=== PATIENT | male | born 1990 | race African-American/Black ===

== ENCOUNTER 2019-10-10 17:44 | Inpatient (IN) | payer BC ==
[2019-10-10] MEDS ORDERED: SODIUM CHLORIDE 0.9% 1,000 ML IV STA ×2 (18:40→20:08)
[2019-10-10 18:54] LABS: Basophils % (A) 0 %; Eosinophils # (A) 0.1 k/uL (0-0.7); Eosinophils % (A) 2 %; HCT 45.1 % (39.0-53.0); HGB 14.7 gm/dL (13.0-17.5); Lymphocytes # (A) 3.9 k/uL (1.0-4.8); Lymphocytes % (A) 52 %; MCH 28.5 pg (25.0-35.0); MCHC 32.5 g/dL (31.0-37.0); MCV 87.7 fL (80.0-100.0); Mean Platelet Volume 6.4; Monocytes # (A) 0.3 k/uL (0-1.0); Monocytes % (A) 4 %; Neutrophils % (A) 40 %; Platelet Count 290 k/uL (150-450); RBC 5.15 m/uL (4.30-5.90); RDW 14.2 % (11.5-15.5); WBC 7.5 k/uL (3.8-10.6)
[2019-10-10 19:03] LABS: ALT 387 U/L (4-49); African American GFR (CKD) >90 (>60 ml/min/1.73 sqM); Albumin 4.3 g/dL (3.5-5.0); Alkaline Phosphatase 51 U/L (38-126); Anion Gap 5 mmol/L; Blood Urea Nitrogen 22 mg/dL (9-20); Calcium 9.2 mg/dL (8.4-10.2); Carbon Dioxide 26 mmol/L (22-30); Chloride 104 mmol/L (98-107); Glucose 84 mg/dL (74-99); Non-African American GFR(CKD) >90 (>60 ml/min/1.73 sqM); Potassium 4.6 mmol/L (3.5-5.1); Sodium 135 mmol/L (137-145); Total Bilirubin 0.3 mg/dL (0.2-1.3); Total Protein 7.2 g/dL (6.3-8.2)
[2019-10-10 19:23] LABS: AST 1702 U/L (17-59)
[2019-10-10 20:01] LABS: Amylase 58 U/L (30-110)
[2019-10-10 20:13] LABS: Appearance,Urine Clear (Clear); Bacteria,Urine Rare /hpf; Bilirubin,Urine Negative (Negative); Blood,Urine Large (Negative); Color,Urine Yellow; Glucose,Urine (UA) Negative (Negative); Ketones,Urine Negative (Negative); Leukocyte Esterase,Urine Negative (Negative); Mucus,Urine Rare /hpf; Nitrite,Urine Negative (Negative); PH, Urine 5.5 (5.0-8.0); Protein,Urine 1+ (Negative); RBC,Urine 1 /hpf (0-5); Specific Gravity,Urine 1.019 (1.001-1.035); Squamous Epithelial Cell,Urine <1 /hpf (0-4); Urobilinogen,Urine <2.0 mg/dL (<2.0); WBC,Urine 1 /hpf (0-5)
[2019-10-10 20:16] LABS: Creatine Kinase 117740 U/L (55-170)
--- NOTE | 2019-10-10 20:35 | ED ---
General Adult HPI - General Chief complaint: Back Pain/Injury Stated complaint: Back Pain Source: patient, RN notes reviewed Mode of arrival: ambulatory Limitations: no limitations - History of Present Illness Initial comments: 29-year-old male without any significant past medical history presents to the emergency department for a chief complaint of back pain. Patient states 4 days ago he started doing cross that again. Patient states his upper back feels very swollen and painful. Patient states his urine is dark as well. Patient talked to a physician who works out at the [employer] and they were concerned he may have rhabdomyolysis so recommended he present to the emergency room. Patient is otherwise feeling well. Patient states he has been a significant amount of amount of sit ups and pushups.Patient has no other complaints at this time including shortness of breath, chest pain, abdominal pain, nausea or vomiting, headache, or visual changes. - Related Data Allergies Allergy/AdvReac Type Severity Reaction Status Date / Time amoxicillin Allergy Rash/Hives Verified 10/10/19 17:51 Review of Systems ROS Statement: Those systems with pertinent positive or pertinent negative responses have been documented in the HPI. ROS Other: All systems not noted in ROS Statement are negative. Past Medical History Past Medical History: No Reported History History of Any Multi-Drug Resistant Organisms: None Reported Additional Past Surgical History / Comment(s): Right arm surgery. Past Psychological History: No Psychological Hx Reported Smoking Status: Never smoker Past Alcohol Use History: Occasional Past Drug Use History: None Reported General Exam Limitations: no limitations General appearance: alert, in no apparent distress Head exam: Present: atraumatic, normocephalic, normal inspection Eye exam: Present: normal appearance, PERRL, EOMI. Absent: scleral icterus, conjunctival injection, periorbital swelling ENT exam: Present: normal exam, mucous membranes moist Neck exam: Present: normal inspection, full ROM. Absent: tenderness, meningismus, lymphadenopathy Respiratory exam: Present: normal lung sounds bilaterally. Absent: respiratory distress, wheezes, rales, rhonchi, stridor Cardiovascular Exam: Present: regular rate, normal rhythm, normal heart sounds. Absent: systolic murmur, diastolic murmur, rubs, gallop, clicks GI/Abdominal exam: Present: soft, normal bowel sounds. Absent: distended, te nderness, guarding, rebound, rigid Back exam: Present: paraspinal tenderness (Patient has bilateral trapezius tenderness). Absent: full ROM (And is able to fully extend but has diminished flexion of the lumbar spine) Neurological exam: Present: alert Psychiatric exam: Present: normal affect, normal mood Course Vital Signs 10/10/19 10/10/19 17:46 19:50 Temperature 98 F Pulse Rate 75 77 Respiratory 18 18 Rate Blood Pressure 137/95 132/90 O2 Sat by Pulse 98 99 Oximetry Medical Decision Making - Medical Decision Making Vitals are stable. CBC is unremarkable. CMP however does show significant transaminitis with an AST is 1700, ALT 387 most likely related to transaminitis. Creatine kinase 117,740. Patient was given 2 L of fluids and started on maintenance fluids. Admitted to [facility] call. Nephrology consulted. - Lab Data Result diagrams: 10/10/19 18:36 10/10/19 18:36 Lab Results 10/10/19 10/10/19 10/10/19 Range/Units 18:36 18:36 18:36 WBC 7.5 (3.8-10.6) k/uL RBC 5.15 (4.30-5.90) m/uL Hgb 14.7 (13.0-17.5) gm/dL Hct 45.1 (39.0-53.0) % MCV 87.7 (80.0-100.0) fL MCH 28.5 (25.0-35.0) pg MCHC 32.5 (31.0-37.0) g/dL RDW 14.2 (11.5-15.5) % Plt Count 290 (150-450) k/uL Neutrophils % 40 % Lymphocytes % 52 % Monocytes % 4 % Eosinophils % 2 % Basophils % 0 % Neutrophils # 3.0 (1.3-7.7) k/uL Lymphocytes # 3.9 (1.0-4.8) k/uL Monocytes # 0.3 (0-1.0) k/uL Eosinophils # 0.1 (0-0.7) k/uL Basophils # 0.0 (0-0.2) k/uL Sodium 135 L (137-145) mmol/L Potassium 4.6 (3.5-5.1) mmol/L Chloride 104 (98-107) mmol/L Carbon Dioxide 26 (22-30) mmol/L Anion Gap 5 mmol/L BUN 22 H (9-20) mg/dL Creatinine 1.10 (0.66-1.25) mg/dL Est GFR (CKD-EPI)AfAm >90 (>60 ml/min/1.73 sqM) Est GFR (CKD-EPI)NonAf >90 (>60 ml/min/1.73 sqM) Glucose 84 (74-99) mg/dL Calcium 9.2 (8.4-10.2) mg/dL Total Bilirubin 0.3 (0.2-1.3) mg/dL AST 1702 H (17-59) U/L ALT 387 H (4-49) U/L Alkaline Phosphatase 51 (38-126) U/L Creatine Kinase [id number] H* (55-170) U/L Total Protein 7.2 (6.3-8.2) g/dL Albumin 4.3 (3.5-5.0) g/dL Amylase 58 (30-110) U/L Lipase 102 (23-300) U/L Urine Color Urine Appearance (Clear) Urine pH (5.0-8.0) Ur Specific [place] (1.001-1.035) Urine Protein (Negative) Urine Glucose (UA) (Negative) Urine Ketones (Negative) Urine Blood (Negative) Urine Nitrite (Negative) Urine Bilirubin (Negative) Urine Urobilinogen (<2.0) mg/dL Ur Leukocyte Esterase (Negative) Urine RBC (0-5) /hpf Urine WBC (0-5) /hpf Ur Squamous Epith Cells (0-4) /hpf Urine Bacteria (None) /hpf Urine Mucus (None) /hpf 10/10/19 Range/Units 19:50 WBC (3.8-10.6) k/uL RBC (4.30-5.90) m/uL Hgb (13.0-17.5) gm/dL Hct (39.0-53.0) % MCV (80.0-100.0) fL MCH (25.0-35.0) pg MCHC (31.0-37.0) g/dL RDW (11.5-15.5) % Plt Count (150-450) k/uL Neutrophils % % Lymphocytes % % Monocytes % % Eosinophils % % Basophils % % Neutrophils # (1.3-7.7) k/uL Lymphocytes # (1.0-4.8) k/uL Monocytes # (0-1.0) k/uL Eosinophils # (0-0.7) k/uL Basophils # (0-0.2) k/uL Sodium (137-145) mmol/L Potassium (3.5-5.1) mmol/L Chloride (98-107) mmol/L Carbon Dioxide (22-30) mmol/L Anion Gap mmol/L BUN (9-20) mg/dL Creatinine (0.66-1.25) mg/dL Est GFR (CKD-EPI)AfAm (>60 ml/min/1.73 sqM) Est GFR (CKD-EPI)NonAf (>60 ml/min/1.73 sqM) Glucose (74-99) mg/dL Calcium (8.4-10.2) mg/dL Total Bilirubin (0.2-1.3) mg/dL AST (17-59) U/L ALT (4-49) U/L Alkaline Phosphatase (38-126) U/L Creatine Kinase (55-170) U/L Total Protein (6.3-8.2) g/dL Albumin (3.5-5.0) g/dL Amylase (30-110) U/L Lipase (23-300) U/L Urine Color Yellow Urine Appearance Clear (Clear) Urine pH 5.5 (5.0-8.0) Ur Specific [place] 1.019 (1.001-1.035) Urine Protein 1+ H (Negative) Urine Glucose (UA) Negative (Negative) Urine Ketones Negative (Negative) Urine Blood Large H (Negative) Urine Nitrite Negative (Negative) Urine Bilirubin Negative (Negative) Urine Urobilinogen <2.0 (<2.0) mg/dL Ur Leukocyte Esterase Negative (Negative) Urine RBC 1 (0-5) /hpf Urine WBC 1 (0-5) /hpf Ur Squamous Epith Cells <1 (0-4) /hpf Urine Bacteria Rare H (None) /hpf Urine Mucus Rare H (None) /hpf Disposition Clinical Impression: Rhabdomyolysis, Transaminitis Disposition: ADMITTED IP TO THIS HOSP Is patient prescribed a controlled substance at d/c from ED?: No Referrals: None,Stated [Primary Care Provider] - 1-2 days Time of Disposition: 20:35
[2019-10-10] MEDS ORDERED: NALOXONE 0.4 MG/ML 1 ML VIAL IV PRN (20:57)
[2019-10-10] MEDS: SODIUM CHLORIDE 0.9% 1,000 ML IV SCH (21:05)
[2019-10-11] MEDS: SODIUM CHLORIDE 0.9% 1,000 ML IV SCH ×6 (02:07→21:23)
--- NOTE | 2019-10-11 03:05 | P.HPIM ---
History of Present Illness H&P Date: 10/10/19 Chief Complaint: body aches , dark urine 29 year old male with no significant past medical history comes in due to couple day history of dark urine and diffuse body aches, all started after he finally was able to go back to the gym and workout really hard that day. next morning he noticed diffuse swelling in his muscles and soreness. otherwise, denies any sick contact, denies GI symptoms, URI symptoms, loss of smell or taste sensation. denies abd pain nausea or vomiting. in the ED he was found to be in acute rhabdomyolysis and admitted for further care. Review of Systems Pertinent positives as noted in HPI. All other systems were reviewed and are negative Past Medical History Past Medical History: No Reported History History of Any Multi-Drug Resistant Organisms: None Reported Additional Past Surgical History / Comment(s): Right arm surgery. Past Anesthesia/Blood Transfusion Reactions: No Reported Reaction Past Psychological History: No Psychological Hx Reported Smoking Status: Never smoker Past Alcohol Use History: Occasional Past Drug Use History: None Reported - Past Family History family Family Medical History: No Reported History Medications and Allergies Home Medications Medication Instructions Recorded Confirmed Type Cholecalciferol [Vitamin D3 (25 1,000 unit PO DAILY 10/10/19 10/10/19 History Mcg = 1000 Iu)] Hydrocodone (Unknown Strength) 1 tab PO ONCE 10/10/19 10/10/19 History Ibuprofen 800 mg PO Q8H PRN 10/10/19 10/10/19 History Multivitamins, Thera [Multivitamin 1 tab PO DAILY 10/10/19 10/10/19 History (formulary)] [place]-3 Fatty Acids/Fish Oil [Fish 1 cap PO DAILY 10/10/19 10/10/19 History Oil 1,000 mg Softgel] Allergies Allergy/AdvReac Type Severity Reaction Status Date / Time amoxicillin Allergy Rash/Hives Verified 10/10/19 23:26 Physical Exam Vitals: Vital Signs Temp Pulse Resp BP Pulse Ox 10/10/19 21:39 98.8 F 72 18 134/91 98 10/10/19 19:50 77 18 132/90 99 10/10/19 17:46 98 F 75 18 137/95 98 Intake and Output 10/10/19 10/10/19 10/10/19 06:59 14:59 22:59 Intake Total 240 Balance 240 Intake: Oral 240 Other: Weight 107.501 kg Constitutional: No acute distress, conversant, pleasant Eyes: Anicteric sclerae, moist conjunctiva, no lid-lag Pupils equal round reactive to light ENMT: NC/AT Oropharynx clear, no erythema, exudates Neck: Supple, FROM, no masses, or JVD No carotid bruits No thyromegaly Lungs: Clear to auscultation Clear to percussion Normal respiratory effort, no accessory muscle use Cardiovascular: Heart regular in rate and rhythm, No murmurs, gallops, or rubs No peripheral edema Abdominal: Soft Nontender, no guarding, rebound or rigidity Abdomen moving with respiration Normoactive bowel sounds No hepatomegaly, No splenomegaly No palpable mass No abdominal wall hernia noted Skin: Normal temperature, tone, texture, turgor No induration No subcutaneous nodules No rash, lesions No ulcers Extremities: limited range of motion over bilateral elbows due to pain and swelling of his arm muscles No digital cyanosis No clubbing Pedal pulses intact and symmetrical Radial pulses intact and symmetrical No calf tenderness Psychiatric: Alert and oriented to person, place and time Appropriate affect fair judgement Neuro Muscles Strength 4/5 in all 4 extremities Sensation to light touch grossly present throughout Cranial nerves II-XII grossly intact No focal sensory deficits Lymphatics: no palpable cervical or supraclavicular , or inguinal lymph nodes Results CBC & Chem 7: 10/10/19 18:36 10/10/19 18:36 Labs: Abnormal Lab Results - Last 24 Hours (Table) 10/10/19 10/10/19 Range/Units 18:36 19:50 Sodium 135 L (137-145) mmol/L BUN 22 H (9-20) mg/dL AST 1702 H (17-59) U/L ALT 387 H (4-49) U/L Creatine Kinase [id number] H* (55-170) U/L Urine Protein 1+ H (Negative) Urine Blood Large H (Negative) Urine Bacteria Rare H (None) /hpf Urine Mucus Rare H (None) /hpf Thrombosis Risk Factor Assmnt - Choose All That Apply Any of the Below Risk Factors Present?: Yes Each Factor Represents 1 point: Obesity (BMI >25) Other Risk Factors: No Other congenital or acquired thrombophilia - If yes, enter type in comment: No Thrombosis Risk Factor Assessment Total Risk Factor Score: 1 Thrombosis Risk Factor Assessment Level: Low Risk Assessment and Plan Assessment: 29 year old male with no significant past medical history comes in after restarting his workout regimen and noticed dark urine with diffuse muscle aches next day. this has been getting worse without much improvement , was found to be in acute rhabdomyolysis admitted for further treatment with anticipated length of stay > 2 midngihts acute rhabdomyolysis due to strenous exercising aggressive IVF hydration renal function monitoring , currently intact monitor urine output pain control monitor CK follow up COVID 19 testing DVT PPX heparin sc tid bed rest full code Discussed with: Patient, ER,rn Anticipated length of stay > than [address]: home A total of 75 minutes was spent on the care of this complex patient more than 50% of the time was spent in counseling and care coordination.
[2019-10-11] MEDS ORDERED: MORPHINE SULFATE 2 MG/ML SYRINGE IVP PRN (03:06)
[2019-10-11 07:41] LABS: African American GFR (CKD) >90 (>60 ml/min/1.73 sqM); Anion Gap 2 mmol/L; Blood Urea Nitrogen 16 mg/dL (9-20); Calcium 8.6 mg/dL (8.4-10.2); Carbon Dioxide 28 mmol/L (22-30); Chloride 106 mmol/L (98-107); Glucose 91 mg/dL (74-99); Non-African American GFR(CKD) >90 (>60 ml/min/1.73 sqM); Sodium 136 mmol/L (137-145)
[2019-10-11 07:52] LABS: Potassium 4.7 mmol/L (3.5-5.1)
[2019-10-11 09:18] LABS: Creatine Kinase 90535 U/L (55-170)
[2019-10-11] MEDS: HEPARIN SODIUM,PORCINE 5,000 UNIT/ML 1 ML VIAL SQ SCH ×3 (10:25→23:51)
--- NOTE | 2019-10-11 14:04 | CONS ---
CONSULTATION REASON FOR CONSULT: Rhabdomyolysis. HISTORY OF PRESENT ILLNESS: The patient is a 29-year-old male with no significant past medical history. He stated that he recently started working out again after being in lock-down and not having worked out for almost 2 months. The patient stated that he felt extreme back pain and muscle weakness and generalized soreness 2 days after his workout. He also noticed swelling of his limbs. He noticed dark urine as well. He is not maintained on any statins prior to admission. Serum creatine kinase [place] 266201[place] [address]. The patient has been maintained on IV fluids. Serum creatinine was 1.1, now it is at 1.0. Patient has had good urine output. He states his urine has become much certified shorthand reporter now. PAST MEDICAL HISTORY: None. SOCIAL HISTORY: Negative for smoking, drug abuse or alcohol abuse. PAST SURGICAL HISTORY: Right arm surgery, nonspecific. MEDICATIONS: Medications at home prior to admission include vitamin D, multivitamins, occasional ibuprofen, fish oil, Vicodin. ALLERGIES: Include AMOXICILLIN which causes rash and hives. REVIEW OF SYSTEMS: As per HPI. Other systems negative. PHYSICAL EXAMINATION: Patient is comfortable, awake, alert, oriented x3, not in any acute distress. Blood pressure is 130/73, heart rate 53 per minute, he is afebrile. Examination of the heart S1, S2. Examination of the lungs, bilateral breath sounds are heard. Abdomen is soft, nontender. Examination of lower extremities shows no evidence of edema. 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 LABS: Show sodium of 136, potassium 4.7, chloride 106, CO2 is 28, BUN 16, [place] 1[place] [address]. UA shows large blood, protein 1+. ASSESSMENT: 1. Rhabdomyolysis, currently improving, associated with intensive workup and probably exacerbated by the warm temperatures as well. 2. Acute kidney injury associated with volume depletion as well as rhabdomyolysis. Serum creatinine 1.0 from 1.1, currently nonoliguric with good urine output. Repeat labs in a.m. 3. History of vitamin D deficiency. PLAN: Continue IV fluids, repeat labs in a.m. At this time since the CK level is improving the serum bicarb was 28, we can continue with normal saline instead of IV bicarb. MMODL / IJN: [id number] /
--- NOTE | 2019-10-11 15:14 | P.PN ---
Subjective Progress Note Date: 10/11/19 29 yo male admitted yesterday with exercise induced rhabdomyolysis. Muscle pain has improved today, CPK has slightly decreased but is still > 90,000, Cr has been stable UOP has been adequate, remains on NS @ 250cc/hr. He denies any fevers or chills, no headaches, no chest pain, no tremors or weakness. Objective - Vital Signs Vital signs: Vital Signs Temp 97.6 F 10/11/19 11:40 Pulse 64 10/11/19 11:40 Resp 16 10/11/19 11:40 BP 134/59 10/11/19 11:40 Pulse Ox 98 10/11/19 11:40 Intake & Output 10/10/19 10/11/19 10/11/19 18:59 06:59 18:59 Intake Total 240 Balance 240 Weight 107.501 kg 107.501 kg Intake: Oral 240 Other: Voiding Method Toilet Toilet # Voids 1 3 - Constitutional General appearance: Present: average body habitus, cooperative, no acute distress. Absent: mild distress - EENT Eyes: Present: EOMI, PERRLA. Absent: abnormal pupil - Neck Neck: Present: normal ROM. Absent: rigidity - Respiratory Respiratory: bilateral: CTA - Cardiovascular Rhythm: regular Abnormal Heart Sounds: Absent: systolic murmur, diastolic murmur - Gastrointestinal General gastrointestinal: Present: normal bowel sounds. Absent: distended, tenderness - Integumentary Integumentary: Absent: calor, cellulitis, jaundiced - Neurologic Neurologic: Present: CNII-XII intact, focal deficits - Musculoskeletal Musculoskeletal: Present: gait normal, strength equal bilaterally. Absent: generalized weakness - Psychiatric Psychiatric: Present: A&O x's 3, appropriate affect - Labs CBC & Chem 7: 10/10/19 18:36 10/11/19 06:36 Labs: Abnormal Lab Results - Last 24 Hours (Table) 10/10/19 10/10/19 10/11/19 Range/Units 18:36 19:50 06:36 Sodium 135 L 136 L (137-145) mmol/L BUN 22 H (9-20) mg/dL AST 1702 H (17-59) U/L ALT 387 H (4-49) U/L Creatine Kinase 484189 H* 28369 H* (55-170) U/L Urine Protein 1+ H (Negative) Urine Blood Large H (Negative) Urine Bacteria Rare H (None) /hpf Urine Mucus Rare H (None) /hpf Assessment and Plan Assessment: # Acute rhabdomyolysis due to strenous exercising -CPK 90,500 today down from 117,000 yesterday -muscle tenderness improving, no weakness -continue IVF, repeat CPK in am -monitor renal function which has been normal so far -continue NS @250cc/hr # DVT PPX # Reg Diet # Disposition -patient may be discharged home tomorrow if renal function is normal and is clinically stable, as long as CPK level is trending down
[2019-10-12] MEDS: HEPARIN SODIUM,PORCINE 5,000 UNIT/ML 1 ML VIAL SQ SCH ×2 (00:36→08:29)
[2019-10-12] MEDS: SODIUM CHLORIDE 0.9% 1,000 ML IV SCH ×3 (02:11→08:31)
[2019-10-12 04:17] VITALS: BP 135/66; PULSE 55; RESP 16; TEMP 96.9
[2019-10-12 08:39] LABS: Basophils % (A) 0 %; Eosinophils # (A) 0.1 k/uL (0-0.7); Eosinophils % (A) 1 %; HCT 43.9 % (39.0-53.0); HGB 13.9 gm/dL (13.0-17.5); Lymphocytes # (A) 2.5 k/uL (1.0-4.8); Lymphocytes % (A) 47 %; MCH 28.3 pg (25.0-35.0); MCHC 31.7 g/dL (31.0-37.0); MCV 89.3 fL (80.0-100.0); Mean Platelet Volume 6.4; Monocytes # (A) 0.3 k/uL (0-1.0); Monocytes % (A) 5 %; Neutrophils # (A) 2.4 k/uL (1.3-7.7); Neutrophils % (A) 45 %; Platelet Count 249 k/uL (150-450); RBC 4.91 m/uL (4.30-5.90); RDW 14.2 % (11.5-15.5); WBC 5.3 k/uL (3.8-10.6)
[2019-10-12 08:45] LABS: ALT 317 U/L (4-49); African American GFR (CKD) >90 (>60 ml/min/1.73 sqM); Albumin 3.5 g/dL (3.5-5.0); Alkaline Phosphatase 49 U/L (38-126); Anion Gap 5 mmol/L; Blood Urea Nitrogen 11 mg/dL (9-20); Calcium 8.5 mg/dL (8.4-10.2); Carbon Dioxide 26 mmol/L (22-30); Chloride 107 mmol/L (98-107); Glucose 128 mg/dL (74-99); Non-African American GFR(CKD) >90 (>60 ml/min/1.73 sqM); Potassium 4.5 mmol/L (3.5-5.1); Sodium 138 mmol/L (137-145); Total Bilirubin 0.3 mg/dL (0.2-1.3); Total Protein 6.5 g/dL (6.3-8.2)
[2019-10-12 09:08] LABS: AST 938 U/L (17-59)
[2019-10-12 09:17] LABS: Creatine Kinase 56713 U/L (55-170)
--- NOTE | 2019-10-12 10:23 | P.DS ---
Providers Date of admission: 10/10/19 21:04 Attending physician: Radha Larose DO Consults: 10/10/19 20:58 Consult Physician Routine Consulting Provider: Mica Duffy Consult Reason/Comments: jeffrey Do you want consulting provider notified?: Yes Primary care physician: Stated None - Discharge Diagnosis(es) (1) Rhabdomyolysis Current Visit: Yes Status: Acute Priority: High Hospital Course: 29 yo male admitted with exercise induced rhabdomyolysis with CPK 117,000, Cr 1.1 on admission. Started on Bicarb drip and NS @ 250cc/hr. Cr improved to 0.94, no evidence of acidosis or electrolyte abnormality. Bicarb drip discontinued the following day and maintained on NS. patient had good urine output with stable kidney function, muscle pain had significantly improved, he has not required any any analgesia, CPK dropped to 50,000, AST/ALT were elevated as a function of muscle damage and not necessarily liver failure, but these were improving as well. Patient was insisting on going home, given the fact that he maintained excellent renal function with good urine output and the lack of co morbidities, decision was made to discharge patient home. He was counseled extensively on the care plan over the next few days. He is to avoid all strenuous activities over the next week, avoid NSAIDs, may use Tylenol for pain, and drink at least 2+ liters of fluids daily over the next 3-4 days. Patient will be discharged home in stable condition. - Constitutional General appearance: muscular body habitus, cooperative, no acute distress. - HEENT Eyes: EOMI, PERRLA. - Neck Neck: normal ROM. No rigidity - Respiratory Respiratory: bilateral: CTA - Cardiovascular Rhythm: regular Abnormal Heart Sounds: Absent: systolic murmur, diastolic murmur - Gastrointestinal General gastrointestinal: Present: normal bowel sounds. Non-distended, no tenderness - Integumentary Integumentary: no calor, cellulitis, jaundice - Neurologic Neurologic: CNII-XII intact, no focal deficits - Musculoskeletal Musculoskeletal: Present: gait normal, strength equal bilaterally. no weakness. Mild tenderness to palpation of lower back muscles - Psychiatric Psychiatric: A&O x's 3, appropriate affect # Discharge Diagnosis: 1. Rhabdomyolysis-exercise induced 2. non oligouric YASMINE 3. Transaminitis secondary to muscle breakdown Patient Condition at Discharge: Good Plan - Discharge Summary Discharge Rx Participant: No New Discharge Prescriptions: Continue Hydrocodone (Unknown Strength) 1 tab PO ONCE Cholecalciferol [Vitamin D3 (25 Mcg = 1000 Iu)] 1,000 unit PO DAILY [place]-3 Fatty Acids/Fish Oil [Fish Oil 1,000 mg Softgel] 1 cap PO DAILY Discontinued Multivitamins, Thera [Multivitamin (formulary)] 1 tab PO DAILY Ibuprofen 800 mg PO Q8H PRN PRN Reason: Pain Discharge Medication List Cholecalciferol [Vitamin D3 (25 Mcg = 1000 Iu)] 1,000 unit PO DAILY 10/10/19 [History] Hydrocodone (Unknown Strength) 1 tab PO ONCE 10/10/19 [History] [place]-3 Fatty Acids/Fish Oil [Fish Oil 1,000 mg Softgel] 1 cap PO DAILY 10/10/19 [History] Follow up Appointment(s)/Referral(s): None,Stated [Primary Care Provider] - 1-2 days Patient Instructions/Handouts: Acute Kidney Injury (DC), Rhabdomyolysis (DC) Activity/Diet/Wound Care/Special Instructions: Avoid strenuous activity for the next 7 days Avoid Ibuprofen, Motrin, Aleve. May use Tylenol for pain drink 2+ liters of fluids daily for the next 3-4 days Discharge Disposition: HOME SELF-CARE
--- NOTE | 2019-10-12 16:26 | PN ---
PROGRESS NOTE Patient is seen for followup for rhabdomyolysis. He states he is feeling well. He denies any significant complaints. He has been walking without any complaints. No soreness noted. CK level has come down to 56,713. Creatinine was 0.94. PHYSICAL EXAMINATION: Patient is comfortable. Blood pressure is 135/65, heart rate 55 per minute, he is afebrile. The patient is euvolemic. No evidence of edema bilateral lower extremities. 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 LABS: Show sodium 138, potassium 4.5, serum creatinine 0.94. CK 56,713. ASSESSMENT: 1. Rhabdomyolysis, now improved. 2. Acute kidney injury, currently improved. 3. History of vitamin D deficiency. PLAN: Patient is stable for discharge from nephrology standpoint. He is advised to maintain aggressive oral hydration post discharge. Recommend repeating CKD levels in about one week's time. MMODL / IJN: [id number] /
--- NOTE | 2019-10-16 07:53 | CDI ---
Documentation Clarification Form Date: 10/16/19 From: Joan Banda Phone: If you have a question about this query, please contact Jo Haas, Machine Setter And Repairer at [phone] between 8am and 5pm. Admit Date: 10/10/19 Discharge Date: 10/12/19 Patient Name: GAVIOTA MIRANDA Visit Number: [id number] ATTENTION: The Clinical Documentation Specialists (CDI) and [facility] Coding Staff appreciate your assistance in clarifying documentation. Please respond to the clarification below the line at the bottom and electronically sign. The CDI & [facility] Coding staff will review the response and follow-up if needed. Please note: Queries are made part of the Legal Health Record. If you have any questions, please contact the author of this message via ITS. Dear Dr. Radha Larose, The patient presented with the body aches, dark urine. Started back to the gym and workout really hard, then noticed diffuse swelling in his muscles and soreness. In ED found rhabdomyolysis and admitted for care. History/Risk Factors: Vitamin D deficiency Lab findings: BUN-22, CO2-26/28, Creatine Kinase-[id number], Cr-1.10 Treatment: IV hydration In your professional opinion, can you please clarify if the type of rhabdomyolysis? Traumatic rhabdomyolysis due to strenuous exercise Non traumatic rhabdomyolysis due to strenuous exercise Other, please specify Unable to determine MTDD
== END 2019-10-12 12:24 | disposition home or self-care (01) | DRG 558 ==
LOC: EC 17:44 → 5NMEDONC 21:04
PROVIDERS: ADMIT Internal Medicine; ATTEND Internal Medicine
DX: M62.82 Rhabdomyolysis (principal); N17.9 Acute kidney failure, unspecified; Z20.828 Contact with and (suspected) exposure to other viral communicable diseases; E86.9 Volume depletion, unspecified; E55.9 Vitamin D deficiency, unspecified; Z79.899 Other long term (current) drug therapy; Z88.0 Allergy status to penicillin; X50.9XXA Other and unspecified overexertion or strenuous movements or postures, initial encounter; Y93.79 Activity, other specified sports and athletics
CPT/HCPCS: 36415; 80048; 80053; 81001; 82150; 82550; 83690; 85025; 96360; 96361; 99284

== ENCOUNTER 2020-12-13 11:44 | Emergency (ER) | payer BC ==
[2020-12-13] MEDS ORDERED: PROPARACAINE 0.5% OPHTH DROPS 15 ML BTL RIGHT EYE STA (13:08)
[2020-12-13] MEDS ORDERED: FLUORESCEIN STRIPS 1 MG STRIP RIGHT EYE ONE (13:08)
[2020-12-13 14:02] VITALS: BP 135/90; PULSE 79; RESP 18; TEMP 98.1
[2020-12-13] MEDS ORDERED: HYDROcodone/APAP 5-325MG 1 EACH TAB PO STA (14:02)
--- NOTE | 2020-12-13 14:10 | ED ---
Eye Problem HPI - General Chief complaint: Eye Problems Stated complaint: rt eye pain Time Seen by Provider: 12/13/20 12:37 Source: patient Mode of arrival: ambulatory Limitations: no limitations - History of Present Illness Initial comments: Patient is a 30-year-old male presenting to the emergency Department with complaints of right eye pain since yesterday. He denies any injuries or trauma to the eye. He states he noticed some swelling of his right eyelid yesterday and then throughout yesterday and today his eye became very red, painful to look around and also the light is very painful as well. He denies any UV light exposure however he was at a concert yesterday, he was not wearing sunglasses. He does not recall any injuries to his eye from yesterday. He denies wearing contacts. He states he's never had an eye exam. Denies fevers or chills, no headache, no blurry vision. He states it just feels better to keep his eyes closed. - Related Data Home Medications Medication Instructions Recorded Confirmed Dextroamphetamine/Amphetamine 40 mg PO DAILY 12/13/20 12/13/20 [Adderall Xr] Previous Rx's Medication Instructions Recorded Prednisolone Acetate/Pf 1 drop RIGHT EYE QID 5 Days #1 12/13/20 [Prednisolone Acet 1% Eye Drop] bottle Allergies Allergy/AdvReac Type Severity Reaction Status Date / Time amoxicillin Allergy Unknown Verified 12/13/20 14:29 Childhood Review of Systems ROS Statement: Those systems with pertinent positive or pertinent negative responses have been documented in the HPI. ROS Other: All systems not noted in ROS Statement are negative. Past Medical History Past Medical History: No Reported History History of Any Multi-Drug Resistant Organisms: None Reported Additional Past Surgical History / Comment(s): Right arm surgery. Past Anesthesia/Blood Transfusion Reactions: No Reported Reaction Past Psychological History: No Psychological Hx Reported Smoking Status: Never smoker Past Alcohol Use History: Occasional Past Drug Use History: None Reported - Past Family History family Family Medical History: No Reported History General Exam - General Exam Comments Initial Comments: GENERAL: Patient is well-developed and well-nourished. Patient is nontoxic and in mild distress. HEAD: Atraumatic, normocephalic. EYES: Pupils equal round and reactive to light, extraocular movements intact, sclera anicteric. Eyelids were unremarkable. Right eye is completely injected, leaving a white rim around the pupil consistent with Uveitis. Eye pressures are normal bilaterally ranging from 20-24. Visual acuity is normal bilateral. Very sensitive to light, painful eye movements. Fluorescein stain is negative for abrasions or ulcers, no other acute findings. ENT: TMs normal, nares patent, oropharynx clear without exudates. Moist mucous membranes. NECK: Normal range of motion, supple without lymphadenopathy or JVD. LUNGS: Unlabored respirations. Breath sounds clear to auscultation bilaterally and equal. No wheezes rales or rhonchi. HEART: Regular rate and rhythm without murmurs, rubs or gallops. MUSCULOSKELETAL: Normal extremities with adequate strength and normal range of motion, no pitting or edema. No clubbing or cyanosis. NEUROLOGICAL: Patient is alert and oriented x 3. SKIN: Warm, Dry, normal turgor, no rashes or lesions noted. Limitations: no limitations Course Vital Signs 12/13/20 12/13/20 11:59 13:59 Temperature 97.5 F L 98.1 F Pulse Rate 66 79 Respiratory 16 18 Rate Blood Pressure 130/82 135/90 O2 Sat by Pulse 100 100 Oximetry Medical Decision Making - Medical Decision Making Patient is a 30-year-old male presenting with right eye pain as noted yesterday. His right eye is injected, painful eye movements, very sensitive to light, exam is consistent with Uveitis. Fluorescein stain was negative for any abrasions or ulcers. Did speak with Dr. Dr. Yan who recommends starting patient on steroid eye drops and will see him in the office tomorrow. I did give patient pain medicine. He is agreeable to this plan of care. He is stable for discharge. Return parameters were discussed with him and he verbalized understanding. Case discussed with Dr. Dixon. Disposition Clinical Impression: Acute right eye pain, Uveitis of right eye Disposition: HOME SELF-CARE Condition: Stable Instructions (If sedation given, give patient instructions): Eye Pain (ED) Additional Instructions: Please return to the Emergency Department if symptoms worsen or any other concerns. Use eyedrops as prescribed. Please follow-up with ophthalmology as discussed. Prescriptions: Prednisolone Acetate/Pf [Prednisolone Acet 1% Eye Drop] 1 drop RIGHT EYE QID 5 Days #1 bottle Is patient prescribed a controlled substance at d/c from ED?: No Referrals: Wilmer Garza MD [Primary Care Provider] - 1-2 days Fahim,Kamal, MD [STAFF PHYSICIAN] - 1-2 days Time of Disposition: 14:28
[2020-12-13] MEDS ORDERED: ACET/COD 300 MG/30 MG STARTER PACK 6 TAB BTL PO STA (14:29)
== END 2020-12-13 14:57 | disposition home or self-care (01) ==
LOC: EC 11:44
DX: H20.00 Unspecified acute and subacute iridocyclitis (principal); Z88.0 Allergy status to penicillin
CPT/HCPCS: 99283

== ENCOUNTER 2023-04-30 22:09 | Emergency (ER) | payer BC ==
[2023-04-30 22:43] VITALS: BP 138/83; TEMP 98.6
[2023-04-30] MEDS ORDERED: KETOROLAC 15 MG/ML 1 ML VIAL IVP STA (23:14)
[2023-04-30] MEDS ORDERED: predniSONE 20 MG TAB PO STA (23:15)
[2023-04-30 23:28] VITALS: PULSE 78; RESP 16
[2023-04-30] MEDS ORDERED: methylPREDNISolone SOD SUCCI 125 MG/2 ML VIAL IV STA (23:33)
[2023-04-30 23:56] LABS: Basophils % (A) 0 %; Eosinophils # (A) 0.1 k/uL (0-0.7); Eosinophils % (A) 1 %; HCT 43.8 % (39.0-53.0); HGB 14.6 gm/dL (13.0-17.5); Lymphocytes # (A) 3.3 k/uL (1.0-4.8); Lymphocytes % (A) 50 %; MCH 29.4 pg (25.0-35.0); MCHC 33.4 g/dL (31.0-37.0); MCV 87.8 fL (80.0-100.0); Mean Platelet Volume 6.5; Monocytes # (A) 0.3 k/uL (0-1.0); Monocytes % (A) 5 %; Neutrophils # (A) 2.8 k/uL (1.3-7.7); Neutrophils % (A) 42 %; Platelet Count 329 k/uL (150-450); RBC 4.99 m/uL (4.30-5.90); WBC 6.7 k/uL (3.8-10.6)
--- NOTE | 2023-05-01 00:27 | ED ---
General Adult HPI - General Chief complaint: Extremity Problem,Nontraumatic Stated complaint: left knee swelling/gout Time Seen by Provider: 04/30/23 22:56 Source: patient Mode of arrival: ambulatory Limitations: no limitations - History of Present Illness Initial comments: This patient is 33-year-old man who presents to have evaluation of his knee. He states that he had been working out at the gym and then following that noticed his knee was starting to become sore. He states that this is similar to previous episodes of gout that he has had. The patient denies fever or chills. He has not noticed redness. -: days(s) Location: lower extremity (Knee) Radiation: non-radiation Quality: aching Consistency: constant Improves with: rest Worsens with: movement Associated Symptoms: denies other symptoms Treatments Prior to Arrival: none - Related Data Home Medications Medication Instructions Recorded Confirmed Dextroamphetamine/Amphetamine 40 mg PO DAILY 12/13/20 12/13/20 [Adderall Xr] Previous Rx's Medication Instructions Recorded Prednisolone Acetate/Pf 1 drop RIGHT EYE QID 5 Days #1 12/13/20 [Prednisolone Acet 1% Eye Drop] bottle Indomethacin [Indocin] 25 mg PO TID #15 capsule 05/01/23 predniSONE 60 mg PO DAILY #30 tab 05/01/23 Allergies Allergy/AdvReac Type Severity Reaction Status Date / Time amoxicillin Allergy Unknown Verified 04/30/23 22:23 Childhood Review of Systems ROS Statement: Those systems with pertinent positive or pertinent negative responses have been documented in the HPI. ROS Other: All systems not noted in ROS Statement are negative. Constitutional: Denies: fever, chills Respiratory: Denies: cough, dyspnea Cardiovascular: Denies: chest pain, edema Gastrointestinal: Denies: abdominal pain Musculoskeletal: Reports: as per HPI, arthralgia Skin: Denies: rash Neurological: Denies: weakness, numbness Past Medical History Past Medical History: No Reported History History of Any Multi-Drug Resistant Organisms: None Reported Additional Past Surgical History / Comment(s): Right arm surgery. Past Anesthesia/Blood Transfusion Reactions: No Reported Reaction Past Psychological History: No Psychological Hx Reported Smoking Status: Never smoker Past Alcohol Use History: Occasional Past Drug Use History: None Reported - Past Family History family Family Medical History: No Reported History General Exam Limitations: no limitations General appearance: alert, in no apparent distress Head exam: Present: atraumatic, normocephalic Eye exam: Present: normal appearance. Absent: scleral icterus, conjunctival injection Respiratory exam: Present: normal lung sounds bilaterally. Absent: respiratory distress, wheezes, rales, rhonchi, stridor Cardiovascular Exam: Present: regular rate, normal rhythm, normal heart sounds. Absent: systolic murmur, diastolic murmur, rubs, gallop Extremities exam: Present: normal inspection, full ROM, tenderness, normal capillary refill. Absent: pedal edema, joint swelling, calf tenderness Skin exam: Present: warm, dry, intact, normal color. Absent: rash Course Vital Signs 04/30/23 04/30/23 22:20 23:04 Temperature 98.6 F Pulse Rate 98 78 Respiratory 18 16 Rate Blood Pressure 138/83 O2 Sat by Pulse 94 L Oximetry Medical Decision Making - Medical Decision Making Was pt. sent in by a medical professional or institution (KEVIN Elaine, MEDICAL MANAGEMENT TRAINER, urgent care, hospital, or fpc...) When possible be specific @ -[No] Did you speak to anyone other than the patient for history (EMS, parent, family, police, friend...)? What history was obtained from this source @ -[No] Did you review nursing and triage notes (agree or disagree)? Why? @ -[I reviewed and agree with nursing and triage notes] Were old charts reviewed (outside hosp., previous admission, EMS record, old EKG, old radiological studies, urgent care reports/EKG's, fpc records)? Report findings @ -[No old charts were reviewed] Differential Diagnosis (chest pain, altered mental status, abdominal pain women, abdominal pain men, vaginal bleeding, weakness, fever, dyspnea, syncope, headache, dizziness, GI bleed, back pain, seizure, CVA, palpatations, mental health, musculoskeletal)? @ -[The differential diagnosis includes: Viral syndrome, septic arthritis, Crystal induced arthralgias, rheumatic disease, vasculitis, spondyloarthropathies, malignancy, multiple myeloma, endocrine disorder, ost eoarthritis, fibromyalgia, this list not comprehensive EKG interpreted by me (3pts min.). @ -[As above] X-rays interpreted by me (1pt min.). @ -[None done] CT interpreted by me (1pt min.). @ -[None done] U/S interpreted by me (1pt. min.). @ -[None done] What testing was considered but not performed or refused? (CT, X-rays, U/S, labs)? Why? @ -[None] What meds were considered but not given or refused? Why? @ -[None] Did you discuss the management of the patient with other professionals (professionals i.e. Dr., PA, MEDICAL MANAGEMENT TRAINER, lab, RT, psych nurse, social media director, school aide, teacher, money position officer, window caser)? Give summary @ -[No] Was smoking cessation discussed for >3mins.? @ -[No] Was critical care preformed (if so, how long)? @ -[No] Were there social determinants of health that impacted care today? How? (Homelessness, low income, unemployed, alcoholism, drug addiction, transportation, low edu. Level, literacy, decrease access to med. care, intermediate, rehab)? @ -[No] Was there de-escalation of care discussed even if they declined (Discuss DNR or withdrawal of care, Hospice)? DNR status @ -[No] What co-morbidities impacted this encounter? (DM, HTN, Smoking, COPD, CAD, Cancer, CVA, ARF, Chemo, Hep., AIDS, mental health diagnosis, sleep apnea, morbid obesity)? @ -[None] Was patient admitted / discharged? Hospital course, mention meds given and route, prescriptions, significant lab abnormalities, going to OR and other pertinent info. @ -[This patient is 33-year-old man who states she has history of gout and presents with arthralgia. At this point the examination not definitive for gout. The exam however is benign not suggestive of septic arthritis or other serious etiology. The patient given medical treatment, we discussed the appropriate further care and follow-up as well as return parameters. Undiagnosed new problem with uncertain prognosis? @ -[No] Drug Therapy requiring intensive monitoring for toxicity (Heparin, Nitro, Insul in, Cardizem)? @ -[No] Were any procedures done? @ -[No] Diagnosis/symptom? @ -[Acute knee arthralgia Acute, or Chronic, or Acute on Chronic? @ -[Acute on chronic Uncomplicated (without systemic symptoms) or Complicated (systemic symptoms)? @ -[Uncomplicated Side effects of treatment? @ -[No] Exacerbation, Progression, or Severe Exacerbation? @ -[No] Poses a threat to life or bodily function? How? (Chest pain, USA, SC, pneumonia, PE, COPD, DKA, ARF, appy, cholecystitis, CVA, Diverticulitis, Homicidal, Suicidal, threat to staff... and all critical care pts) @ -[No] - Lab Data Result diagrams: 04/30/23 23:41 04/30/23 23:41 Lab Results 04/30/23 04/30/23 Range/Units 23:41 23:41 WBC 6.7 (3.8-10.6) k/uL RBC 4.99 (4.30-5.90) m/uL Hgb 14.6 (13.0-17.5) gm/dL Hct 43.8 (39.0-53.0) % MCV 87.8 (80.0-100.0) fL MCH 29.4 (25.0-35.0) pg MCHC 33.4 (31.0-37.0) g/dL RDW 14.0 (11.5-15.5) % Plt Count 329 (150-450) k/uL MPV 6.5 Neutrophils % 42 % Lymphocytes % 50 % Monocytes % 5 % Eosinophils % 1 % Basophils % 0 % Neutrophils # 2.8 (1.3-7.7) k/uL Lymphocytes # 3.3 (1.0-4.8) k/uL Monocytes # 0.3 (0-1.0) k/uL Eosinophils # 0.1 (0-0.7) k/uL Basophils # 0.0 (0-0.2) k/uL Sodium 140 (137-145) mmol/L Potassium 3.9 (3.5-5.1) mmol/L Chloride 105 (98-107) mmol/L Carbon Dioxide 25 (22-30) mmol/L Anion Gap 10 mmol/L BUN 21 H (9-20) mg/dL Creatinine 1.03 (0.66-1.25) mg/dL Est GFR (CKD-EPI)AfAm >90 (>60 ml/min/1.73 sqM) Est GFR (CKD-EPI)NonAf >90 (>60 ml/min/1.73 sqM) Glucose 102 H (74-99) mg/dL Uric Acid 5.9 (3.5-8.5) mg/dL Calcium 9.7 (8.4-10.2) mg/dL C-Reactive Protein <0.5 (<1.0) mg/dL Disposition Clinical Impression: Arthralgia of left knee Disposition: HOME SELF-CARE Condition: Good Instructions (If sedation given, give patient instructions): Gout (ED) Prescriptions: Indomethacin [Indocin] 25 mg PO TID #15 capsule predniSONE 60 mg PO DAILY #30 tab Is patient prescribed a controlled substance at d/c from ED?: No Referrals: Wilmer Garza MD [Primary Care Provider] - 1-2 days
[2023-05-01 00:48] LABS: African American GFR (CKD) >90 (>60 ml/min/1.73 sqM); Anion Gap 10 mmol/L; Blood Urea Nitrogen 21 mg/dL (9-20); C Reactive Protein <0.5 mg/dL (<1.0); Calcium 9.7 mg/dL (8.4-10.2); Carbon Dioxide 25 mmol/L (22-30); Chloride 105 mmol/L (98-107); Glucose 102 mg/dL (74-99); Non-African American GFR(CKD) >90 (>60 ml/min/1.73 sqM); Potassium 3.9 mmol/L (3.5-5.1); Sodium 140 mmol/L (137-145); Uric Acid 5.9 mg/dL (3.5-8.5)
== END 2023-05-01 00:38 | disposition home or self-care (01) ==
LOC: EC 22:09
DX: M25.562 Pain in left knee (principal); Z88.0 Allergy status to penicillin
CPT/HCPCS: 36415; 80048; 84550; 85025; 86140; 99283; 96374; 96375; J2930; J1885

== ENCOUNTER 2024-07-26 20:30 | Emergency (ER) | payer BC ==
[2024-07-26 20:35] VITALS: BP 156/89; PULSE 98; RESP 18; TEMP 98.9
--- NOTE | 2024-07-26 21:09 | XR ---
EXAMINATION TYPE: XR shoulder complete LT DATE OF EXAM: 07/26/2024 8:46 PM COMPARISON: None CLINICAL INDICATION: Male, 34 years old with history of pain; PHH, pain TECHNIQUE: XR shoulder complete LT; examined in AP, internally rotated and scapular Y projections. FINDINGS: Large osteophyte projects off the left humeral head degeneration changes of the glenoid. No evidence of acute osseous pathology, joint dislocation, or soft tissue swelling. The remaining port ions of the visualized chest are unremarkable. IMPRESSION: 1. No acute osseous pathology. 2. Moderate degeneration changes with large osteophyte off the humeral head which is abnormal for patty dickerson's age criteria for history of trauma. Consider further evaluation with MRI. [facility], , 07/26/2024 9:06 PM
--- NOTE | 2024-07-26 21:34 | ED ---
General Adult HPI - General Chief complaint: Extremity Problem,Nontraumatic Stated complaint: Lft shoulder pain Time Seen by Provider: 07/26/24 21:33 Source: patient, RN notes reviewed, old records reviewed Mode of arrival: ambulatory Limitations: no limitations - History of Present Illness Initial comments: 34-year-old male presenting with acute on chronic left shoulder pain. Patient has had intermittent pain in the shoulder for some time. He is undergoing physical therapy. It was recommended that the patient receive an MRI but his symptoms had improved and he did not have an MRI. Patient states over the past 1 week this has been more aggravated. He denies a specific injury. He is quite active at baseline. He states that he had prior shoulder dislocation, no fracture. - Related Data Home Medications Medication Instructions Recorded Confirmed Dextroamphetamine/Amphetamine 40 mg PO DAILY 12/13/20 12/13/20 [Adderall Xr] Previous Rx's Medication Instructions Recorded Prednisolone Acetate/Pf 1 drop RIGHT EYE QID 5 Days #1 12/13/20 [Prednisolone Acet 1% Eye Drop] bottle Indomethacin [Indocin] 25 mg PO TID #15 capsule 05/01/23 predniSONE 60 mg PO DAILY #30 tab 05/01/23 HYDROcodone/APAP 5-325MG [[place] 1 tab PO Q6HR PRN #12 tab 07/26/24 5-325] Ibuprofen [Motrin] 600 mg PO Q8HR PRN #24 tab 07/26/24 Allergies Allergy/AdvReac Type Severity Reaction Status Date / Time amoxicillin Allergy Unknown Verified 07/26/24 20:35 Childhood Review of Systems ROS Statement: Those systems with pertinent positive or pertinent negative responses have been documented in the HPI. ROS Other: All systems not noted in ROS Statement are negative. Past Medical History Past Medical History: No Reported History History of Any Multi-Drug Resistant Organisms: None Reported Additional Past Surgical History / Comment(s): Right arm surgery. Past Anesthesia/Blood Transfusion Reactions: No Reported Reaction Past Psychological History: No Psychological Hx Reported Smoking Status: Never smoker Past Alcohol Use History: Occasional Past Drug Use History: None Reported - Past Family History family Family Medical History: No Reported History General Exam Limitations: no limitations General appearance: alert, in no apparent distress Head exam: Present: atraumatic, normocephalic Eye exam: Present: normal appearance, PERRL ENT exam: Present: normal exam Neck exam: Present: normal inspection. Absent: tenderness, meningismus Respiratory exam: Present: normal lung sounds bilaterally. Absent: respiratory distress, wheezes Cardiovascular Exam: Present: regular rate, normal rhythm GI/Abdominal exam: Present: soft. Absent: distended Extremities exam: Present: tenderness, normal capillary refill, other (Pain in the left shoulder with any range of motion. Distal pulses intact normal children's literature professor strength). Absent: full ROM Course Vital Signs 07/26/24 20:32 Temperature 98.9 F Pulse Rate 98 Respiratory 18 Rate Blood Pressure 156/89 O2 Sat by Pulse 98 Oximetry Medical Decision Making - Medical Decision Making Was pt. sent in by a medical professional or institution (, KEVIN, MEDIA/INSTRUCTIONAL DESIGNER, urgent care, hospital, or alf...) When possible be specific @ -No Did you speak to anyone other than the patient for history (EMS, parent, family, police, friend...)? What history was obtained from this source @ -No Did you review nursing and triage notes (agree or disagree)? Why? @ -I reviewed and agree with nursing and triage notes Were old charts reviewed (outside hosp., previous admission, EMS record, old EKG, old radiological studies, urgent care reports/EKG's, alf records)? Report findings @ -No old charts were reviewed Differential Musculoskeletal Muscular strain, contusion, ligament sprain, fracture, arthritis, septic arthritis, bursitis, cellulitis, muscle spasm, nerve compression, DVT, arterial occlusion, herpes zoster, electrolyte abnormality, tumor.... This is not meant to be in all inclusive list EKG interpreted by me (3pts min.). @ -As above X-rays interpreted by me (1pt min.). @X-ray shows osteoarthritis of the left shoulder, no fracture or dislocation CT interpreted by me (1pt min.). @ -None done U/S interpreted by me (1pt. min.). @ -None done What testing was considered but not performed or refused? (CT, X-rays, U/S, labs)? Why? @ -None What meds were considered but not given or refused? Why? @ -None Did you discuss the management of the patient with other professionals (professionals i.e. KEVIN Elaine, MEDIA/INSTRUCTIONAL DESIGNER, lab, RT, psych nurse, social research assistant, crude oil treater, teacher, job placement officer, insurance case manager)? Give summary @ -No Was smoking cessation discussed for >3mins.? @ -No Was critical care preformed (if so, how long)? @ -No Were there social determinants of health that impacted care today? How? (Homelessness, low income, unemployed, alcoholism, drug addiction, transportation, low edu. Level, literacy, decrease access to med. care, residential, rehab)? @ -No Was there de-escalation of care discussed even if they declined (Discuss DNR or withdrawal of care, Hospice)? DNR status @ -No What co-morbidities impacted this encounter? (DM, HTN, Smoking, COPD, CAD, Cancer, CVA, ARF, Chemo, Hep., AIDS, mental health diagnosis, sleep apnea, morbid obesity)? @ -None Was patient admitted / discharged? Hospital course, mention meds given and route, prescriptions, significant lab abnormalities, going to OR and other pertinent info. @ -34-year-old male with acute on chronic left shoulder pain. X-ray does show advanced arthritis with large osteophyte. No specific trauma. Patient afebrile and otherwise well-appearing. Prescribed anti-inflammatories. He will benefit from orthopedic evaluation given the significant arthritis. Undiagnosed new problem with uncertain prognosis? @ -No Drug Therapy requiring intensive monitoring for toxicity (Heparin, Nitro, Insulin, Cardizem)? @ -No Were any procedures done? @ -No Diagnosis/symptom? @ -[Left shoulder pain, osteoarthritis Acute, or Chronic, or Acute on Chronic? @ -Acute on chronic Uncomplicated (without systemic symptoms) or Complicated (systemic symptoms)? @ -Default Side effects of treatment? @ -No Exacerbation, Progression, or Severe Exacerbation? @ -No Poses a threat to life or bodily function? How? (Chest pain, USA, MD, pneumonia, PE, COPD, DKA, ARF, appy, cholecystitis, CVA, Diverticulitis, Homicidal, Suicidal, threat to staff... and all critical care pts) @ -No Disposition Clinical Impression: Osteoarthritis, Chronic shoulder pain Disposition: HOME SELF-CARE Condition: Fair Instructions (If sedation given, give patient instructions): Osteoarthritis (ED), Shoulder Pain (ED) Prescriptions: Ibuprofen [Motrin] 600 mg PO Q8HR PRN #24 tab PRN Reason: Pain HYDROcodone/APAP 5-325MG [[place] 5-325] 1 tab PO Q6HR PRN #12 tab PRN Reason: Pain Is patient prescribed a controlled substance at d/c from ED?: No Referrals: Wilmer Garza MD [Primary Care Provider] - 1-2 days Ortega Bui DO [Doctor of Osteopathic Medicine] - 1-2 days Time of Disposition: 21:34
[2024-07-26] MEDS: KETOROLAC 15 MG/ML 1 ML VIAL IM STA (21:54)
== END 2024-07-26 22:22 | disposition home or self-care (01) ==
LOC: EC 20:30
DX: M25.512 Pain in left shoulder (principal); M19.90 Unspecified osteoarthritis, unspecified site; Z88.0 Allergy status to penicillin
CPT/HCPCS: 73030; 99283; 96372; J1885